=== PATIENT | female | born 2000 | race African-American/Black ===

== ENCOUNTER 2024-10-11 21:16 | Emergency (ER) | payer MEDICAID ==
[~2024-10-11] VITALS: Ht 162.6 cm; Wt 78.0 kg
[2024-10-11 21:18] VITALS: O2SAT 100
[2024-10-11 21:21] VITALS: BP 146/68; PULSE 87; RESP 18; TEMP 36.7; O2SAT 98
== END 2024-10-11 21:40 | disposition left against medical advice (07) ==
LOC: ER 21:16
DX: O20.9 Hemorrhage in early pregnancy, unspecified (principal); Z53.29 Procedure and treatment not carried out because of patient's decision for other reasons; Z3A.20 20 weeks gestation of pregnancy
CPT/HCPCS: 99281